=== PATIENT | male | born 1945 | race Caucasian/White ===

== ENCOUNTER 2024-08-24 11:34 | Emergency (ER) | payer MEDICARE ==
[2024-08-24 12:19] LABS: #Eosinophils 0.2 thou/uL (0.0-0.7); #Lymphocytes 3.3 thou/uL (1.20-3.40); #Monocytes 1.5 thou/uL (0.11-0.59); #Neutrophils 7.6 thou/uL (1.40-6.50); %Eosinophils 1.6 % (0.0-10.0); %Lymphocytes 25.9 % (21.0-51.0); %Monocytes 11.6 % (0.0-10.0); %Neutrophils 59.9 % (42.0-75.0); Hematocrit 35.3 % (42.0-52.0); Hemoglobin 10.4 g/dL (14.0-18.0); Manual Diff?? NO; Mean Corpuscular HGB CONC 29.5 g/dL (32.0-36.0); Mean Corpuscular Hemoglobin 23.2 pg (27.0-31.0); Mean Corpuscular Volume 78.7 fl (78.0-98.0); Platelet Count 294 10x3/uL (130-400); RBC Distribution Width 14.9 % (11.5-14.5); Red Blood Cell (RBC) Count 4.49 mill/uL (4.70-6.10); White Blood Cell (WBC) Count 12.8 10x3/uL (4.8-10.8)
[2024-08-24] MEDS ORDERED: Sodium Chloride 0.9% 500 ML ONE (12:19)
[2024-08-24] MEDS ORDERED: dilTIAZem 25 MG/5 ML VIAL ONE (12:19)
[2024-08-24 12:20] LABS: #Basophils 0.1 thou/uL (0.0-0.2)
[2024-08-24 12:42] LABS: INR-International Normal Ratio 1.2; PTT 25.2 sec (22.9-36.1); Prothrombin Time 15.1 sec (12.0-14.7)
[2024-08-24 12:50] LABS: Troponin I 0.019 ng/mL (< 0.028)
[2024-08-24 12:53] LABS: ALT (SGPT) 11 U/L (Less than 45); AST (SGOT) 16 U/L (11-34); Alkaline Phosphatase 81 U/L (40-110); Anion Gap 18 mmol/L (10-20); BUN (Urea Nitrogen) 19 mg/dL (8.4-25.7); Bilirubin, Total 0.4 mg/dL (0.3-1.2); Calc. Creatinine Clearance 0 mL/min (70-130); Calcium 9.8 mg/dL (7.8-10.44); Carbon Dioxide 20 mmol/L (23-31); Chloride 97 mmol/L (98-107); Estimated GFR 89; Globulin 4.1 g/dL (2.4-3.5); Glucose 106 mg/dL (83-110); Potassium 4.7 mmol/L (3.5-5.1); Protein, Total 7.1 g/dL (5.8-8.1); Sodium 130 mmol/L (136-145)
== END 2024-08-24 15:33 | disposition short-term general hospital (02) ==
LOC: NAV ERS 11:34
DX: I48.91 Unspecified atrial fibrillation (principal); E78.5 Hyperlipidemia, unspecified; Z87.891 Personal history of nicotine dependence
CPT/HCPCS: 36415; 71045; 80053; 83880; 84484; 85025; 85610; 85730; 93005; 94760; 96374; J7030